=== PATIENT | female | born 1970 | race Caucasian/White ===

== ENCOUNTER 2017-12-29 11:56 | Emergency (ER) | payer OTHER ==
--- NOTE | 2017-12-29 13:10 | EDPHY ---
H & P Time Seen by Provider: 12/29/17 12:47 HPI/ROS: CHIEF COMPLAINT: Syncope HISTORY OF PRESENT ILLNESS: Patient fell otherwise well except for little bit of a persistent cough over the past week. She was in the backseat of car with 2 coworkers in front driving between office is before lunch when she felt her heart racing and the next thing she remembers they were pulled off on the side of the road. Apparently the co-worker saw her in the back not responsive for about 10 sec but no seizure activity noted she was not postictal afterwards. Now the patient feels fine. She just can't remember why they pulled off to the side of the road or what happened. She did bite her tongue or lose urinary continence. She did have a breakfast but has not had lunch. There has been a lot of stress at work. REVIEW OF SYSTEMS: Eye: no change in vision ENT: no sore throat Cardiac: No chest pain Pulmonary: Not short of breath no hemoptysis Abdomen: no vomiting, diarrhea, abdominal pain Musculoskeletal: no back pain Skin: no rash Neuro: no headache Constitutional: no fever : no urinary symptoms A comprehensive 10 point review of systems is otherwise negative aside from elements mentioned in the history of present illness. PAST MEDICAL HISTORY: Hypothyroid Family history: Positive for hypertension in her mother and cardiac disease in her father, not for venous thromboembolism Social history: Nonsmoker, no recent travel or surgery. General Appearance: Alert and conversant, cooperative. Eyes: No scleral icterus. ENT, Mouth: Normal mucous membranes. No tongue laceration or abrasion. Respiratory: Normal respiratory effort, breath sounds equal, lungs are clear to auscultation. Cardiovascular: Regular rate and rhythm. No murmurs. Gastrointestinal: Abdomen is soft and non tender. Neurological: Alert, face symmetric, normal motor and sensory in extremities. No clonus, normal [id number] bilaterally, speech fluent speech. Skin: Warm and dry, no rashes. Musculoskeletal: No peripheral edema. No calf tenderness. Psychiatric: Not agitated. Emergency Department course/MDM: Clinically appears more likely to be syncope than seizure. EKG shows sinus rhythm. Placed on a monitor, CBC chemistry and troponin sent. Oswald patient. No dysrhythmia on monitor. Labs reviewed are normal. Does not have signs or symptoms of pulmonary embolism or seizure. Smoking Status: Never smoked Constitutional: Initial Vital Signs Temperature (C) 36.8 C 12/29/17 12:04 Heart Rate 99 12/29/17 12:04 Respiratory Rate 18 12/29/17 12:04 Blood Pressure 192/114 H 12/29/17 12:04 O2 Sat (%) 97 12/29/17 12:04 O2 Delivery Mode Room Air Allergies/Adverse Reactions: No Known Allergies Allergy (Unverified 11/24/09 20:54) Home Medications: Medication Instructions Recorded SYNTHROID 11/24/09 Medical Decision Making - Diagnostics EKG Interpretation: 12-lead EKG interpreted by me; official reading is in computer system. My interpretation is sinus rhythm rate 84 with normal intervals, no acute ischemic changes. Differential Diagnosis: Differential diagnosis considered for syncope including but not limited to vasovagal syncope, arrhythmia, dehydration, and blood loss. - Data Points Laboratory Results: Laboratory Results 12/29/17 13:06 12/29/17 12:52 12/29/17 12/29/17 13:06 12:52 WBC 5.77 10^3/uL 10^3/uL (3.80-9.50) RBC 4.43 10^6/uL 10^6/uL (4.18-5.33) Hgb 14.2 g/dL g/dL (12.6-16.3) Hct 41.2 % % (38.0-47.0) MCV 93.0 fL fL (81.5-99.8) MCH 32.1 pg pg (27.9-34.1) MCHC 34.5 g/dL g/dL (32.4-36.7) RDW 12.2 % % (11.5-15.2) Plt Count 200 10^3/uL 10^3/uL (150-400) MPV 12.2 fL H fL (8.7-11.7) Neut % (Auto) 73.1 % % (39.3-74.2) Lymph % (Auto) 17.5 % % (15.0-45.0) Pitkin % (Auto) 7.8 % % (4.5-13.0) Eos % (Auto) 0.5 % L % (0.6-7.6) Baso % (Auto) 0.9 % % (0.3-1.7) Nucleat RBC Rel Count 0.0 % % (0.0-0.2) Absolute Neuts (auto) 4.22 10^3/uL 10^3/uL (1.70-6.50) Absolute Lymphs (auto) 1.01 10^3/uL 10^3/uL (1.00-3.00) Absolute Monos (auto) 0.45 10^3/uL 10^3/uL (0.30-0.80) Absolute Eos (auto) 0.03 10^3/uL 10^3/uL (0.03-0.40) Absolute Basos (auto) 0.05 10^3/uL 10^3/uL (0.02-0.10) Absolute Nucleated RBC 0.00 10^3/uL 10^3/uL (0-0.01) Immature Gran % 0.2 % % (0.0-1.1) Immature Gran # 0.01 10^3/uL 10^3/uL (0.00-0.10) Sodium 139 mEq/L mEq/L (135-145) Potassium 3.8 mEq/L mEq/L (3.3-5.0) Chloride 102 mEq/L mEq/L (97-110) Carbon Dioxide 26 mEq/l mEq/l (22-31) Anion Gap 11 mEq/L mEq/L (8-16) BUN 13 mg/dL mg/dL (7-23) Creatinine 0.7 mg/dL mg/dL (0.6-1.0) Estimated GFR > 60 Glucose 98 mg/dL mg/dL (70-100) Calcium 9.7 mg/dL mg/dL (8.5-10.4) Troponin I < 0.012 ng/mL ng/mL (0.000-0.034) Departure - Departure Disposition: Home, Routine, Self-Care Clinical Impression: Syncope Qualifiers: Syncope type: unspecified Qualified Code(s): R55 - Syncope and collapse Condition: Good Instructions: Syncope (ED) Referrals: [facility] ,. [Edm Groups for Call Sched] - As per Instructions
[2017-12-29 13:17] LABS: PLATELET COUNT 200 10^3/uL (150-400)
[2017-12-29 13:56] VITALS: BP 156/82
--- NOTE | 2017-12-29 16:14 | CPEKG ---
Test Reason : OPEN Blood Pressure : / mmHG Vent. Rate : 084 BPM Atrial Rate : 084 BPM P-R Int : 150 ms QRS Dur : 088 ms QT Int : 410 ms P-R-T Axes : 079 057 019 degrees QTc Int : 485 ms Sinus rhythm Minimal ST depression, anterolateral leads Confirmed by Jumana Smith ([id number]) on 12/29/2017 4:14:25 PM Referred By: Confirmed By:Jumana Smith
== END 2017-12-29 14:30 | disposition home or self-care (01) ==
DX: R55 Syncope and collapse (principal)